=== PATIENT | female | born 1970 | race Caucasian/White ===

== ENCOUNTER 2016-08-19 17:09 | Emergency (ER) | payer MEDICAID, OTHER ==
[~2016-08-19] VITALS: Ht 162.6 cm; Wt 86.4 kg
[~2016-08-19 17:09] MED LIST: ALBU8I INH; NAPR-576 PO; PROM6.257 PO
[2016-08-19 17:30] VITALS: BP 122/82; PULSE 69; RESP 17; TEMP 99; O2SAT 100
--- NOTE | 2016-08-19 17:50 | RADHPO ---
EXAM DATE/TIME: 08/19/2016 17:38 [facility] COMPARISON: No previous studies available for comparison. INDICATIONS : Patient states no trauma. Complains of pain of left wrist on ulnar side. Patient works at [employer] and does alot of the same movement. MEDICAL HISTORY : None. SURGICAL HISTORY : None. ENCOUNTER: Initial ACUITY: 2 days PAIN SCORE: 8/10 LOCATION: Left wrist FINDINGS: There are couple tiny circumscribed ossific densities along the dorsal wrist which appear nonacute. N o definite evidence of fracture or dislocation. Mineralization is normal and no significant arthritic changes are appreciated. CONCLUSION: No acute bony findings Dar Kendrick MD on August 19, 2016 at 17:47 Board Certified Radiologist. This report was verified electronically.
[2016-08-19] MEDS ORDERED: IBUP800T23 PO (18:27)
[2016-08-19] MEDS ORDERED: AMOX875T PO (18:27)
--- NOTE | 2016-08-19 18:27 | PD ---
HPI Chief Complaint: Musculoskeletal Complaint Time Seen by Provider: 18:19 Travel History International Travel<30 days: No Contact w/Intl Traveler<30days: No Traveled to known affect area: No History of Present Illness HPI Patient is a 45-year-old female presenting to the emergency department for evaluation of left wrist pain. Patient states she woke up this morning with her wrist hurting her. Denies any injury or trauma, she states she might of hit it when she was sleeping. She also complains of a left earache. Left ear has been bothering her for 3 days. She has no other complaints at this time. [facility] Past Medical History Medical History: Denies Significant Hx Asthma: No Autoimmune Disease: No COPD: No Diminished Hearing: No Headaches: Yes Integumentary: Yes (vitiligo) Immunizations Current: Yes Seizures: Yes (LAST ONE JUN 02) Tetanus Vaccination: < 5 Years Influenza Vaccination: No PNEUMOCCOCAL Vaccine (Year): 3 ?: Not LMP: 3 weeks ago : 3 Para: 2 Tubal Ligation: Yes Past Surgical History Abdominal Surgery: Yes (UMB. HERNIA REPAIR) Appendectomy: Yes Section: Yes (X2) Pacemaker: No Social History Alcohol Use: Yes (Occ.) Tobacco Use: Yes (1 PPD) Substance Use: No Allergies-Medications (Allergen,Severity, Reaction): Coded Allergies: Bactrim (Verified Allergy, Mild, rash, 08/19/16) Sulfa (Verified Adverse Reaction, Severe, "FEELS LIKE VEINS ARE GOING TO BURST,DIFFICULTY WALKING", 08/19/16) *MDRO Multi-Drug Resistant Organism (Verified Adverse Reaction, Unknown, ) MRSA (leg wound) - 07/14/2015 Reported Meds & Prescriptions Reported Meds & Active Scripts Active No Active Prescriptions or Reported Medications Review of Systems HENT: Positive: Earache Musculoskeletal: Positive: Myalgias, Pain Physical Exam Narrative GENERAL: Well-nourished, well-developed patient. SKIN: Warm and dry. HEAD: Normocephalic. EARS: Bilateral pinnae and external canals appear within normal limits. Right tympanic membrane without erythema, dullness or perforation. Left tympanic membrane is mildly erythematous and dull. EYES: No scleral icterus. No injection or drainage. NECK: Supple, trachea midline. No JVD or lymphadenopathy. CARDIOVASCULAR: Regular rate and rhythm without murmurs, gallops, or rubs. RESPIRATORY: Breath sounds equal bilaterally. No accessory muscle use. GASTROINTESTINAL: Abdomen soft, non-tender, nondistended. MUSCULOSKELETAL: No cyanosis, mild edema noted over the volar aspect of the left wrist on the radial aspect. Positive radial pulse, brisk less than 3 second capillary refill. Full range of motion in left hand and fingers and left wrist. Mildly tender to palpation. No erythema noted. BACK: Nontender without obvious deformity. No CVA tenderness. Data Data Last Documented VS Vital Signs Date Time Temp Pulse Resp B/P Pulse Ox O2 Delivery O2 Flow Rate FiO2 08/19/16 18:00 18 08/19/16 17:30 99.0 69 122/82 100 Orders Wrist, Complete ([id number]) (08/19/16 ) [facility] Medical Decision Making Medical Screen Exam Complete: Yes Emergency Medical Condition: Yes Interpretation(s) Vital Signs Date Time Temp Pulse Resp B/P Pulse Ox O2 Delivery O2 Flow Rate FiO2 08/19/16 18:00 18 08/19/16 17:30 99.0 69 17 122/82 100 Differential Diagnosis Fracture versus sprain versus strain versus carpal tunnel syndrome versus arthritis versus other Narrative Course Patient is a 45-year-old female presenting to the emergency department for evaluation of left wrist pain and left earache. Left tympanic membrane is mildly erythematous and dull. Examination of the wrist seems more consistent with a carpal tunnel syndrome as patient does perform repetitive movements at work. Patient is encouraged to today he nicely affected extremity. Continue range of motion exercises. She was encouraged to follow-up with her primary doctor for orthopedic surgeon for further evaluation and management. Furthermore she was encouraged return to emergency department for any new or worsening symptoms. Diagnosis Primary Impression: Wrist pain Qualified Code: M25.532 - Left wrist pain Additional Impression: Otitis media Qualified Code: H66.90 - Otitis media, unspecified chronicity, unspecified laterality, unspecified otitis media type Referrals: Primary Care Physician Patient Instructions: Carpal Tunnel Syndrome (ED), General Instructions, Otitis Media (ED), Wrist Injury (ED) Additional Instructions: Follow-up with her primary doctor Take medications as directed Apply warm moist heat to affected area, continue range of motion exercises, avoid bed rest, avoid exacerbating activities Return to emergency department for any new or worsening symptoms Med/Other Pt SpecificInfo: Prescription(s) given Scripts Amoxicillin 875 Mg [id number] Mg PO BID 10 Days Ref 0 Prov:Lovely Noble 08/19/16 Ibuprofen 800 Mg [id number] Mg PO Q8H PRN (Pain/Inflammation) #60 TAB Ref 0 Prov:Lovely Noble 08/19/16 Disposition: 01 DISCHARGE HOME Condition: Stable Lovely Noble Aug 19, 2016 18:27
== END 2016-08-19 18:30 | disposition home or self-care (01) ==
LOC: PHEFT 17:09
DX: H66.90 Otitis media, unspecified, unspecified ear (principal); M25.532 Pain in left wrist; F17.210 Nicotine dependence, cigarettes, uncomplicated
CPT/HCPCS: 73110; 99283

== ENCOUNTER 2017-05-23 16:08 | Emergency (ER) | payer MEDICAID ==
[~2017-05-23] VITALS: Ht 162.6 cm; Wt 113.0 kg
[~2017-05-23 16:08] MED LIST changes: -ALBU8I INH; +AMOX875T PO; +IBUP1TAB7 PO; -NAPR-576 PO; -PROM6.257 PO
[2017-05-23 16:29] VITALS: BP 133/79; PULSE 74; RESP 16; TEMP 99; O2SAT 100
--- NOTE | 2017-05-23 17:57 | PD ---
HPI Chief Complaint: Musculoskeletal Complaint Time Seen by Provider: 17:52 Travel History International Travel<30 days: No Contact w/Intl Traveler<30days: No Traveled to known affect area: No History of Present Illness HPI 46 year old female presents to the emergency department for evaluation of left foot pain that occurred around 3 PM this afternoon after she slipped and fell twisting her left foot forward. Patient denies any head injury or LOC. No neck pain or back pain. No chest pain or abdominal pain. No nausea, vomiting, diarrhea. Patient states that ambulation, putting weight on her foot will exacerbate the pain. Resting, not moving but will alleviate pain. Patient reports no chronic medical problems and takes no prescribed medications. No radiation of pain. Severity is moderate. PFSH Past Medical History Asthma: No Autoimmune Disease: No COPD: No Diminished Hearing: No Headaches: Yes Integumentary: Yes (vitiligo) Immunizations Current: Yes Seizures: Yes (LAST ONE JUN 02) PNEUMOCCOCAL Vaccine (Year): 3 ?: Not LMP: 04/23/17 : 3 Para: 2 Tubal Ligation: Yes Past Surgical History Abdominal Surgery: Yes (UMB. HERNIA REPAIR) Appendectomy: Yes Section: Yes (X2) Pacemaker: No Social History Alcohol Use: Yes (Occ.) Tobacco Use: Yes (1 PPD) Substance Use: No Allergies-Medications (Allergen,Severity, Reaction): Coded Allergies: sulfamethoxazole (Unverified Allergy, Mild, rash, 05/23/17) trimethoprim (Unverified Allergy, Mild, rash, 05/23/17) Sulfa (Sulfonamide Antibiotics) (Unverified Adverse Reaction, Severe, "FEELS LIKE VEINS ARE GOING TO BURST,DIFFICULTY WALKING", 05/23/17) *MDRO Multi-Drug Resistant Organism (Verified Adverse Reaction, Unknown, 05/23/17) MRSA (leg wound) - 07/14/2015 Reported Meds & Prescriptions Reported Meds & Active Scripts Active No Active Prescriptions or Reported Medications Review of Systems Except as stated in HPI: all other systems reviewed are Neg Physical Exam Narrative GENERAL: Well-nourished, well-developed female patient, afebrile. SKIN: Focused skin assessment warm/dry. No lacerations or abrasions. No erythema or warmth over left foot. No obvious deformity. HEAD: Normocephalic. Atraumatic. EYES: No scleral icterus. No injection or drainage. NECK: Supple, trachea midline. No JVD or lymphadenopathy. CARDIOVASCULAR: Left pedal pulse 2+. RESPIRATORY:No accessory muscle use. GASTROINTESTINAL: Abdomen soft, non-tender, nondistended. MUSCULOSKELETAL: No cyanosis, or edema. Patient has tenderness to palpation over left dorsal foot at the base of the toes. She has full sensation distal left lower extremity. BACK: Nontender without obvious deformity. No CVA tenderness. Data Data Last Documented VS Vital Signs Date Time Temp Pulse Resp B/P (MAP) Pulse Ox O2 Delivery O2 Flow Rate FiO2 05/23/17 16:29 99.0 74 16 133/79 (97) 100 Orders Orders Acetamin-Hydrocod 325-5 Mg ([place] 5-325 (05/23/17 18:00) Foot, Complete ([id number]) (05/23/17 ) Splint Or Brace Apply/Monitor (05/23/17 19:54) MDM Medical Decision Making Medical Screen Exam Complete: Yes Emergency Medical Condition: Yes Medical Record Reviewed: Yes Interpretation(s) x-ray left foot - CONCLUSION: 1. Prominent calcaneal spurs. 2. No fracture Differential Diagnosis Fracture versus contusion versus sprain versus dislocation Narrative Course 46 year old female presents to the emergency department for evaluation of left foot injury that occurred after she tripped and fell. X-ray left foot is ordered and pending. Patient is given hydrocodone/acetaminophen 5/325 mg by mouth. X-ray left foot is negative for fracture. Patient is provided Abdiel bandage for comfort. She'll be also be given a prescription for ibuprofen. She is instructed to ice, elevate, follow primary care physician. She verbalizes agreement and understanding. The patient was discharged in stable condition with instructions, including return instructions and follow up instructions. Diagnosis Primary Impression: Sprain of left foot Qualified Codes: S93.602A - Unspecified sprain of left foot, initial encounter Referrals: Primary Care Physician call for appointment Patient Instructions: Foot Sprain (ED), General Instructions Additional Instructions: Wear Abdiel bandage as needed for support. Take ibuprofen as directed as needed with food for pain. Elevate. Ice for 20 minutes 4-5 times daily. Follow-up with your primary care physician. Return to the emergency department for any acute worsening of symptoms. Med/Other Pt SpecificInfo: Prescription(s) given Scripts Ibuprofen (Ibuprofen) 800 Mg Tab 800 MG PO TID Y for PAIN SCALE 1 TO 10, #21 TAB 0 Refills Prov: Milagro Ball 05/23/17 Disposition: 01 DISCHARGE HOME Condition: Stable Milagro Ball May 23, 2017 17:57
[2017-05-23] MEDS ORDERED: ACETAMINOPHEN/HYDROcodone 325 MG/5 MG TAB PO ONE (18:00)
--- NOTE | 2017-05-23 19:49 | RADRPT ---
EXAM DATE/TIME: 05/23/2017 18:17 [facility] COMPARISON: No previous studies available for comparison. INDICATIONS : Left foot pain. MEDICAL HISTORY : None. SURGICAL HISTORY : None. ENCOUNTER: Initial ACUITY: 1 day PAIN SCORE: 6/10 LOCATION: Left foot. FINDINGS: Three view examination of the left foot demonstrates no soft tissue swelling, dislocation, or fractur e. The tarsal bones appear intact. The interphalangeal and metatarsophalangeal joints are intact. The calcaneus is intact. Bony mineralization is normal. Prominent calcaneal spurs at the plantar ap oneurosis and Achilles attachment CONCLUSION: 1. Prominent calcaneal spurs. 2. No fracture Jovon Hightower MD on May 23, 2017 at 19:47 Board Certified Radiologist. This report was verified electronically.
[2017-05-23] MEDS ORDERED: IBUP1TAB7 PO (19:55)
== END 2017-05-23 20:05 | disposition home or self-care (01) ==
LOC: PHEFT 16:08
DX: S93.602A Unspecified sprain of left foot, initial encounter (principal); F17.200 Nicotine dependence, unspecified, uncomplicated; Z87.2 Personal history of diseases of the skin and subcutaneous tissue; Z86.69 Personal history of other diseases of the nervous system and sense organs; W01.0XXA Fall on same level from slipping, tripping and stumbling without subsequent striking against object, initial encounter; X50.1XXA Overexertion from prolonged static or awkward postures, initial encounter
CPT/HCPCS: 73630; 99283

== ENCOUNTER 2017-10-16 10:46 | Emergency (ER) | payer MEDICAID ==
[~2017-10-16] VITALS: Ht 162.6 cm; Wt 90.0 kg
[~2017-10-16 10:46] MED LIST changes: -AMOX875T PO
[2017-10-16 10:48] VITALS: BP 161/99; PULSE 88; RESP 16; TEMP 98.5; O2SAT 99
[2017-10-16] MEDS ORDERED: TRAM50 PO (11:12)
--- NOTE | 2017-10-16 11:13 | PD ---
HPI Chief Complaint: Musculoskeletal Complaint Time Seen by Provider: 11:06 Travel History International Travel<30 days: No Contact w/Intl Traveler<30days: No Traveled to known affect area: No History of Present Illness HPI Patient presents with complaints of left lower extremity swelling yesterday. Associated discomfort/pain. 6 out of 10. Dull achy. She does work at [employer] and is on her feet for 10-12 hours per day. She does not wear support hose. She is a smoker. Family history of varicosities. Denies any chest pain shortness of breath urinary or bowel symptoms. Swelling has resolved overnight with elevation. PFSH Past Medical History Asthma: No Autoimmune Disease: No COPD: No Diminished Hearing: No Headaches: Yes Medical other: Yes (SEIZURE 6 YRS AGO - SINGLE EPISODE) Reproductive: Yes (c section x 2) Integumentary: Yes (vitiligo) Immunizations Current: Yes Seizures: Yes (LAST ONE JUN 02) Tetanus Vaccination: < 5 Years Influenza Vaccination: No PNEUMOCCOCAL Vaccine (Year): 3 ?: Not : 3 Para: 2 Tubal Ligation: Yes Past Surgical History Abdominal Surgery: Yes (UMB. HERNIA REPAIR) Appendectomy: Yes Section: Yes (X2) Gynecologic Surgery: Yes (C-SECT. X2) Pacemaker: No Other Surgery: Yes Social History Alcohol Use: Yes (Occ.) Tobacco Use: Yes (08/28 PPD) Substance Use: No Allergies-Medications (Allergen,Severity, Reaction): Coded Allergies: sulfamethoxazole (Unverified Allergy, Mild, rash, 10/16/17) trimethoprim (Unverified Allergy, Mild, rash, 10/16/17) Sulfa (Sulfonamide Antibiotics) (Unverified Adverse Reaction, Severe, "FEELS LIKE VEINS ARE GOING TO BURST,DIFFICULTY WALKING", 10/16/17) *MDRO Multi-Drug Resistant Organism (Verified Adverse Reaction, Unknown, 05/23/17) MRSA (leg wound) - 07/14/2015 Reported Meds & Prescriptions Reported Meds & Active Scripts Active No Active Prescriptions or Reported Medications Review of Systems General / Constitutional: No: Fever Eyes: No: Visual changes HENT: No: Headaches Cardiovascular: No: Chest Pain or Discomfort Respiratory: No: Shortness of Breath Gastrointestinal: No: Abdominal Pain Genitourinary: No: Dysuria Musculoskeletal: Positive: Edema, No: Pain Skin: No Rash Neurologic: No: Weakness Psychiatric: No: Depression Endocrine: No: Polydipsia Hematologic/Lymphatic: No: Easy Bruising Physical Exam Narrative GENERAL: Well-nourished, well-developed patient. SKIN: Focused skin assessment warm/dry. HEAD: Normocephalic. EYES: No scleral icterus. No injection or drainage. NECK: Supple, trachea midline. No JVD or lymphadenopathy. CARDIOVASCULAR: Regular rate and rhythm without murmurs, gallops, or rubs. RESPIRATORY: Breath sounds equal bilaterally. No accessory muscle use. GASTROINTESTINAL: Abdomen soft, non-tender, nondistended. MUSCULOSKELETAL: No cyanosis, or edema. BACK: Nontender without obvious deformity. No CVA tenderness. Examination of lower extremities reveals varicosities left greater than right with some mild venous stasis changes, dorsal pedis pulses are palpable, good capillary refill Data Data Last Documented VS Vital Signs Date Time Temp Pulse Resp B/P (MAP) Pulse Ox O2 Delivery O2 Flow Rate FiO2 10/16/17 10:48 98.5 88 16 161/99 (119) 99 [facility]DM Medical Decision Making Medical Screen Exam Complete: Yes Emergency Medical Condition: Yes Differential Diagnosis Varicosities, fluid retention, heart failure Narrative Course Assessment plan discussed with patient at bedside. Diagnosis Primary Impression: Varicosities of leg Additional Impression: Fluid retention in legs Patient Instructions: General Instructions Additional Instructions: Encourage smoking cessation, encouraged support hose every morning with good foot wear, encouraged to observe salt in diet, encouraged elevation when able. Follow-up with PCP to discuss possible diuretic and elevated blood pressure. Return to the emergency room with any onset of new symptoms. Med/Other Pt SpecificInfo: Prescription(s) given Scripts Tramadol (Ultram) 50 Mg Tab 50 MG PO Q4H Y for PAIN, #10 TAB 0 Refills Prov: Wilner Hayes MD 10/16/17 Disposition: 01 DISCHARGE HOME Condition: Good Wilner Hayes MD Oct 16, 2017 11:12
== END 2017-10-16 11:25 | disposition home or self-care (01) ==
LOC: PHEFT 10:46
DX: I83.93 Asymptomatic varicose veins of bilateral lower extremities (principal); R60.9 Edema, unspecified; F17.200 Nicotine dependence, unspecified, uncomplicated; Z86.69 Personal history of other diseases of the nervous system and sense organs; Z88.2 Allergy status to sulfonamides; Z88.8 Allergy status to other drugs, medicaments and biological substances
CPT/HCPCS: 99283

== ENCOUNTER 2017-10-27 10:25 | Emergency (ER) | payer MEDICAID ==
[~2017-10-27] VITALS: Ht 162.6 cm; Wt 88.3 kg
[~2017-10-27 10:25] MED LIST changes: -IBUP1TAB7 PO; +TRAM50 PO
[2017-10-27 10:32] VITALS: BP_SYST 149; BP_SYST 186; BP_DIAS 83; PULSE 76; RESP 16; TEMP 99; O2SAT 96
--- NOTE | 2017-10-27 12:45 | PD ---
HPI Chief Complaint: Musculoskeletal Complaint Time Seen by Provider: 11:11 Travel History International Travel<30 days: No Contact w/Intl Traveler<30days: No Traveled to known affect area: No History of Present Illness HPI This is a 47-year-old female here with left lower extremity pain. She was seen approximately a week ago and diagnosed with varicosities. She reports since that time she has had increased pain in the lower extremity is concerned of DVT. No prior history of DVT. No hormone use, no recent immobilization, no cancer history. She reports the pain is constant, aching worse after long periods of standing. Alleviated with resting and elevating her legs. PFSH Past Medical History Medical History: Denies Significant Hx Asthma: No Autoimmune Disease: No COPD: No Diabetes: No Diminished Hearing: No Headaches: Yes Medical other: Yes (SEIZURE 6 YRS AGO - SINGLE EPISODE) Reproductive: Yes (c section x 2) Respiratory: No Integumentary: Yes (vitiligo) Immunizations Current: Yes Seizures: Yes (LAST ONE JUN 02) Tetanus Vaccination: < 5 Years PNEUMOCCOCAL Vaccine (Year): 3 ?: Not : 3 Para: 2 Tubal Ligation: Yes Past Surgical History Abdominal Surgery: Yes (UMB. HERNIA REPAIR) Appendectomy: Yes Section: Yes (X2) Gynecologic Surgery: Yes (C-SECT. X2) Pacemaker: No Other Surgery: Yes Social History Alcohol Use: Yes (Occ.) Tobacco Use: Yes (/ PPD) Substance Use: No Allergies-Medications (Allergen,Severity, Reaction): Coded Allergies: sulfamethoxazole (Unverified Allergy, Mild, rash, 10/27/17) trimethoprim (Unverified Allergy, Mild, rash, 10/27/17) Sulfa (Sulfonamide Antibiotics) (Unverified Adverse Reaction, Severe, "FEELS LIKE VEINS ARE GOING TO BURST,DIFFICULTY WALKING", 10/27/17) *MDRO Multi-Drug Resistant Organism (Verified Adverse Reaction, Unknown, ) MRSA (leg wound) - 07/14/2015 Reported Meds & Prescriptions Reported Meds & Active Scripts Active No Active Prescriptions or Reported Medications Review of Systems Except as stated in HPI: all other systems reviewed are Neg General / Constitutional: No: Fever Eyes: No: Visual changes HENT: No: Headaches Cardiovascular: No: Chest Pain or Discomfort Respiratory: No: Shortness of Breath Gastrointestinal: No: Abdominal Pain Genitourinary: No: Dysuria Physical Exam Narrative GENERAL: Alert and well-appearing 47-year-old female SKIN: Warm and dry. HEAD: Normocephalic. EYES: No injection or drainage. NECK: Supple, trachea midline. No JVD or lymphadenopathy. CARDIOVASCULAR: Regular rate and rhythm without murmurs, gallops, or rubs. RESPIRATORY: Breath sounds equal bilaterally. No accessory muscle use. GASTROINTESTINAL: Abdomen soft, non-tender, nondistended. MUSCULOSKELETAL: No cyanosis. LLE: Tenderness to the posterior and medial aspect of the calf. Palpable firm varicosity to the proximal/medial aspect of the calf. Palpable DP pulse. Normal coloration. Normal sensation. Brisk cap refill. BACK: Nontender without obvious deformity. No CVA tenderness. Data Data Last Documented VS Vital Signs Date Time Temp Pulse Resp B/P (MAP) Pulse Ox O2 Delivery O2 Flow Rate FiO2 10/27/17 10:32 99.0 76 16 149/83 (105) 96 Orders Orders Us Leg Venous Doppler (10/27/17 11:37) MDM Medical Decision Making Medical Screen Exam Complete: Yes Emergency Medical Condition: Yes Differential Diagnosis Superficial thrombophlebitis, DVT, other Narrative Course 47-year-old female here with left lower extremity pain. Ultrasound showed no thrombus of the greater saphenous vein. Patient will be instructed to apply warm compresses, NSAIDs, follow-up with PCP this week. Diagnosis Primary Impression: Superficial thrombophlebitis Qualified Codes: I80.8 - Phlebitis and thrombophlebitis of other sites Referrals: Evan Rivera MD Departure Forms: Tests/Procedures, Work Release Enter return to work date: October 29, 2017 Additional Instructions: Medication as directed. Apply warm compresses to the area. Make a follow-up appointment with Dr. Rivera. Compression hose as discussed. Elevate the extremity. Scripts Tramadol (Tramadol) 50 Mg Tab 50 MG PO Q6H Y for PAIN, #12 TAB 0 Refills Prov: Isa Pandya 10/27/17 Ibuprofen (Ibuprofen) 800 Mg Tab 800 MG PO Q6HR Y for PAIN, #40 TAB 0 Refills Prov: Isa Pandya 10/27/17 Disposition: 01 DISCHARGE HOME Condition: Stable Isa Pandya October 27, 2017 12:45
--- NOTE | 2017-10-27 12:59 | RADRPT ---
EXAM DATE/TIME: 10/27/2017 12:37 [facility] COMPARISON: No previous studies available for comparison. INDICATIONS : Left leg pain and swelling. MEDICAL HISTORY : History of single episode seizure. Vitiligo. SURGICAL HISTORY : Appendectomy. section. Tubal ligation. Umbilical hernia repair. ENCOUNTER: Initial ACUITY: 1 day PAIN SCORE: 3/10 LOCATION: Left leg. TECHNIQUE: Venous ultrasound of the leg was performed from the inguinal ligament to the proximal calf. Real-alejo e, color Doppler and spectral tracing, compression and augmentation techniques were used. FINDINGS: There is normal compressibility of the deep venous system from the inguinal region to the proximal ca lf. No echogenic clot is seen in the lumen of the common femoral, femoral, popliteal, and posterior tibial veins. There is a normal response of the venous system to proximal and distal augmentation an d respiration. The greater saphenous vein is thrombosed in the distal thigh and proximal calf was no ncompressible. CONCLUSION: 1. No evidence of deep venous thrombosis. 2. Thrombosis of the greater saphenous vein. Stoney Ayala MD on October 27, 2017 at 12:57 Board Certified Radiologist. This report was verified electronically.
[2017-10-27] MEDS ORDERED: IBUP1TAB7 PO (13:12)
[2017-10-27] MEDS ORDERED: TRAM50TA PO (13:12)
== END 2017-10-27 13:34 | disposition home or self-care (01) ==
LOC: PHEFT 10:25
DX: I80.8 Phlebitis and thrombophlebitis of other sites (principal); F17.200 Nicotine dependence, unspecified, uncomplicated; Z88.2 Allergy status to sulfonamides; Z88.8 Allergy status to other drugs, medicaments and biological substances; Z86.69 Personal history of other diseases of the nervous system and sense organs
CPT/HCPCS: 93971; 99284